=== PATIENT | male | born 1995 | race Caucasian/White ===

== ENCOUNTER 2017-08-16 22:15 | Emergency (ER) | payer OTHER ==
[2017-08-16] MEDS ORDERED: ONDANSETRON DISINTEGRATING 4 MG TAB PO ONE (22:30)
--- NOTE | 2017-08-16 22:30 | EDPHY ---
H & P Stated Complaint: cough, N/v sore throat HPI/ROS: HPI CHIEF COMPLAINT: Dry cough, sore throat, nausea, vomiting, diarrhea "I feel like I have the flu " HISTORY OF PRESENT ILLNESS: This patient otherwise healthy 22-year-old male, presents emergency room with a constellation of complaints. Patient reports to me that he has had sore throat for 2-3 days. Intermittent nausea vomiting and diarrhea. He states he thinks he may have the flu. Did not get his flu shot today. He reports no muscle aches joint pain denies high fever. Denies chest pain or shortness of breath. Denies productive cough. Dry cough present. Main complaint is nausea pain Past Medical History: Denies significant medical history Past Surgical History: Denies significant surgical history Social History: Denies daily use drugs alcohol tobacco products. [employer] student. Family History: Noncontributory. ROS REVIEW OF SYSTEMS: A comprehensive 10 point review of systems is otherwise negative aside from elements mentioned in the history of present illness. Exam Constitutional appears well nontoxic, triage nursing summary reviewed, vital signs reviewed, awake/alert. Eyes normal conjunctivae and sclera, EOMI, PERRLA. HENT posterior pharynx mildly erythematous, no significant exudate or significant swelling, bilateral TMs are erythematous and bulging bilaterally, moist mucus membranes, no epistaxis, neck supple/ no meningismus, no raccoon eyes. Respiratory clear to auscultation bilaterally, normal breath sounds, no respiratory distress, no wheezing. Cardiovascular rate normal, regular rhythm, no murmur, no edema, distal pulses normal. Gastrointestinal soft, non-tender, no rebound, no guarding, normal bowel sounds, no distension, no pulsatile mass. Genitourinary no CVA tenderness. Musculoskeletal no midline vertebral tenderness, full range of motion, no calf swelling, no tenderness of extremities, no meningismus, good pulses, neurovascularly intact. Skin pink, warm, & dry, no rash, skin atraumatic. Neurologic no stick neck, no meningeal signs, supple, awake, alert and oriented x 3, AAOx3, moves all 4 extremities equally, motor intact, sensory intact, CN II-XII intact, normal cerebellar, normal vision, normal speech. Psychiatric normal mood/affect. Heme/Lymph/Immune no lymphadenopathy. Differential Diagnosis: Includes but is not to in a particular order, rule syndrome, upper respiratory tract infection, strep pharyngitis, influenza Medical Decision Making: Plan for this patient rapid strep test. Zofran p. o. for nausea, influenza test. Re-evaluate. Re-evaluation: 1215: Stress test and flu is negative. Will prescribe ibuprofen for pain control at home. Zofran for nausea. He understands stay well-hydrated. Return precautions have been given. Understands return emergency room if develops worsening symptoms includes high fever, vomiting or does not feel well. Rest. Return if worse. He understands. Clinically I believe he has viral syndrome versus influenza. Source: Patient - Personal History Current Tetanus Diphtheria and Acellular Pertussis (TDAP): Yes - Medical/Surgical History Hx Asthma: No Hx Chronic Respiratory Disease: No Hx Diabetes: No Hx Cardiac Disease: No Hx Renal Disease: No Hx Cirrhosis: No Hx Alcoholism: No Hx HIV/AIDS: No Hx Splenectomy or Spleen Trauma: No Other PMH: denies - Social History Smoking Status: Never smoked Constitutional: Initial Vital Signs Temperature (C) 36.4 C 08/16/17 22:18 Heart Rate 82 08/16/17 22:18 Respiratory Rate 20 08/16/17 22:18 Blood Pressure 110/58 L 08/16/17 22:18 O2 Sat (%) 98 08/16/17 22:18 O2 Delivery Mode Room Air Allergies/Adverse Reactions: No Known Allergies Allergy (Unverified 08/16/17 22:17) Home Medications: Medication Instructions Recorded Ibuprofen [Motrin (*)] 800 mg PO Q6-8PRN #10 tab 08/16/17 Ondansetron HCl [Zofran] 4 mg PO Q4-6PRN PRN #10 tablet 08/16/17 Prozac 10 MG (*) 08/16/17 Medical Decision Making - Data Points Laboratory Results: 08/16/17 08/16/17 08/16/17 Unknown 22:35 22:35 Nasal Influenza A PCR NEGATIVE FOR FLU A (NEGATIVE) Nasal Influenza B PCR NEGATIVE FOR FLU B (NEGATIVE) Group A Strep Screen NEGATIVE (NEGATIVE) Group A Strep DNA Pending Medications Given: Discontinued Medications Ondansetron HCl (Zofran Odt) 4 mg PO EDNOW ONE Stop: 08/16/17 22:31 Last Admin: 08/16/17 22:32 Dose: 4 mg Promethazine HCl (Phenergan) 12.5 mg PO EDNOW ONE Stop: 08/16/17 23:24 Last Admin: 08/16/17 23:25 Dose: 12.5 mg Departure - Departure Disposition: Home, Routine, Self-Care Clinical Impression: Viral syndrome Condition: Good Instructions: Viral Syndrome (ED) Additional Instructions: 1. Make sure to drink lots of fluids stay well-hydrated. 2. Tylenol Motrin for fever and pain control. 3. Return emergency develops worsening symptoms questions or concerns. Referrals: NONE *PRIMARY CARE P,. [Primary Care Provider] - As per Instructions Prescriptions: Ibuprofen [Motrin (*)] 800 mg PO Q6-8PRN #10 tab Ondansetron HCl [Zofran] 4 mg PO Q4-6PRN PRN #10 tablet PRN Reason: Nausea/Vomiting, Use 1st
[2017-08-16] MEDS ORDERED: PROMETHAZINE HCL 25 MG TAB PO ONE (23:23)
[2017-08-17 00:05] VITALS: BP 117/58; PULSE 71; RESP 16; TEMP 98.1; O2SAT 94
== END 2017-08-17 00:25 | disposition home or self-care (01) ==
DX: B34.9 Viral infection, unspecified (principal)

== ENCOUNTER 2018-02-11 19:36 | Emergency (ER) | payer OTHER ==
--- NOTE | 2018-02-11 20:01 | EDPHY ---
H & P Time Seen by Provider: 02/11/18 19:53 HPI/ROS: Chief complaint. Abdominal pain HPI. Patient is 22-year-old male right lower quadrant pain for the last 2-3 hours. He had vomiting and diarrhea over the weekend which was 2-3 days ago but that has resolved. He notes decreased urination today. It hurts to urinate. No fever. No history of abdominal surgery. Penis and testicles are normal. Pain is not worse with ambulation or position. He tells me it just hurts constantly. No similar symptoms previously. ROS Constitutional. no fever/chills, no weakness Eyes. no problems with vision ENT. no sore throat, no nasal drainage Cardiovascular. no chest pain Respiratory. no shortness of breath, no cough Abdominal. Right lower quadrant abdominal pain . Decreased urination MS. no calf pain/swelling, no neck/back pain, no joint pain Skin. no rash Lymph. no swollen glands Neuro. no headache, no dizziness, no difficulty walking or with speech Past Medical/Surgical History: Depression Social History: Single, nonsmoker, no alcohol Smoking Status: Never smoked Physical Exam: General Appearance: Alert well-developed male moderate distress vital signs are stable Eyes: Pupils equal and round no pallor or injection. ENT, Mouth: Mucous membranes are moist. Respiratory: There are no retractions, lungs are clear to auscultation. Cardiovascular: Regular rate and rhythm. Gastrointestinal: Abdomen is soft with tenderness at the right lower quadrant at McBurney's point. No masses. Normal bowel sounds. Neurological: Awake and alert, sensory and motor exams grossly normal. Skin: Warm and dry, no rashes. Musculoskeletal: Neck is supple nontender. Extremities symmetrical, full range of motion. Psychiatric: Patient is oriented X 3, there is no agitation. Constitutional: Initial Vital Signs Temperature (C) 36.4 C 02/11/18 19:39 Heart Rate 70 02/11/18 19:39 Respiratory Rate 16 02/11/18 19:39 Blood Pressure 121/75 H 02/11/18 19:39 O2 Sat (%) 97 02/11/18 19:39 O2 Delivery Mode Room Air Allergies/Adverse Reactions: No Known Allergies Allergy (Unverified 02/11/18 19:49) Home Medications: Medication Instructions Recorded Cephalexin [Keflex (*)] 500 mg PO TID #21 cap 02/11/18 Prozac 10 MG (*) 02/11/18 Wellbutrin 100mg (*) 02/11/18 oxyCODONE/APAP 5/325 [Percocet 1 tab PO Q4-6PRN PRN #7 tab 02/11/18 5/325] Medical Decision Making - Diagnostics Imaging Results: Imaging Impressions Abdomen CT 02/11/18 20:05 Impression: 1. Mild right-sided hydronephrosis with dilatation of the right ureter down to the UVJ where there is a 1.5 mm calculus. There is slight decrease in enhancement of the right kidney when compared to the left. 2. No CT evidence of appendicitis, abscess or bowel obstruction. Findings discussed with Eleno Salazar M.D. at 20:53 hour, 02/11/2018. CT abdomen pelvis reviewed by me and discussed with Dr. Simmons shows mild right hydronephrosis and 1.5 mm calculus at the right UVJ Procedures: IV normal saline. Morphine for pain. Zofran for nausea Continues to have pain. Toradol IV Cephalexin in the emergency department ED Course/Re-evaluation: After the Toradol his discomfort is much improved. Re-evaluation 8:50 p.m.. Patient and I discussed imaging and lab results. We discussed treatment plan including criteria for return importance of follow-up and further evaluation. He expresses understanding and agreement Recheck again at 9:45 p.m.. Patient is pain-free. Differential Diagnosis: I considered appendicitis, kidney stone, pyelonephritis - Data Points Laboratory Results: Laboratory Results 02/11/18 19:55 02/11/18 19:55 02/11/18 02/11/18 02/11/18 20:05 19:55 19:55 WBC 10.10 10^3/uL H 10^3/uL (3.80-9.50) RBC 4.84 10^6/uL 10^6/uL (4.40-6.38) Hgb 16.0 g/dL g/dL (13.7-17.5) Hct 45.1 % % (40.0-51.0) MCV 93.2 fL fL (81.5-99.8) MCH 33.1 pg pg (27.9-34.1) MCHC 35.5 g/dL g/dL (32.4-36.7) RDW 12.1 % % (11.5-15.2) Plt Count 255 10^3/uL 10^3/uL (150-400) MPV 9.2 fL fL (8.7-11.7) Neut % (Auto) 38.4 % L % (39.3-74.2) Lymph % (Auto) 50.5 % H % (15.0-45.0) [place] % (Auto) 9.6 % % (4.5-13.0) Eos % (Auto) 0.7 % % (0.6-7.6) Baso % (Auto) 0.5 % % (0.3-1.7) Nucleat RBC Rel Count 0.0 % % (0.0-0.2) Absolute Neuts (auto) 3.88 10^3/uL 10^3/uL (1.70-6.50) Absolute Lymphs (auto) 5.10 10^3/uL H 10^3/uL (1.00-3.00) Absolute Monos (auto) 0.97 10^3/uL H 10^3/uL (0.30-0.80) Absolute Eos (auto) 0.07 10^3/uL 10^3/uL (0.03-0.40) Absolute Basos (auto) 0.05 10^3/uL 10^3/uL (0.02-0.10) Absolute Nucleated RBC 0.00 10^3/uL 10^3/uL (0-0.01) Immature Gran % 0.3 % % (0.0-1.1) Immature Gran # 0.03 10^3/uL 10^3/uL (0.00-0.10) Sodium 141 mEq/L mEq/L (135-145) Potassium 3.3 mEq/L L mEq/L (3.5-5.2) Chloride 103 mEq/L mEq/L (97-110) Carbon Dioxide 23 mEq/l mEq/l (22-31) Anion Gap 15 mEq/L mEq/L (8-16) BUN 15 mg/dL mg/dL (7-23) Creatinine 1.4 mg/dL H mg/dL (0.7-1.3) Estimated GFR > 60 Glucose 125 mg/dL H mg/dL (70-100) Calcium 9.5 mg/dL mg/dL (8.5-10.4) Urine Color YELLOW Urine Appearance HAZY Urine pH 5.0 (5.0-7.5) Ur Specific [place] 1.025 (1.002-1.030) Urine Protein 1+ H (NEGATIVE) Urine Ketones TRACE H (NEGATIVE) Urine Blood 3+ H (NEGATIVE) Urine Nitrate NEGATIVE (NEGATIVE) Urine Bilirubin NEGATIVE (NEGATIVE) Urine Urobilinogen NEGATIVE EU EU (0.2-1.0) Ur Leukocyte Esterase NEGATIVE (NEGATIVE) Urine RBC 50-182 /hpf H /hpf (0-3) Urine WBC 15-25 /hpf H /hpf (0-3) Ur Epithelial Cells TRACE /lpf /lpf (NONE-1+) Urine Mucus 3+ /lpf H /lpf (NONE-1+) Urine Glucose NEGATIVE (NEGATIVE) Medications Given: Discontinued Medications Cephalexin HCl (Keflex) 500 mg PO EDNOW ONE PRN Reason: Protocol Stop: 02/11/18 21:01 Last Admin: 02/11/18 21:15 Dose: 500 mg Sodium Chloride (Ns) 1,000 mls @ 0 mls/hr IV EDNOW ONE; Wide Open PRN Reason: Protocol Stop: 02/11/18 20:06 Last Admin: 02/11/18 20:23 Dose: 1,000 mls Sodium Chloride (Ns) 1,000 mls @ 0 mls/hr IV EDNOW ONE; Wide Open PRN Reason: Protocol Stop: 02/11/18 20:06 Last Admin: 02/11/18 21:16 Dose: 1,000 mls Ketorolac Tromethamine (Toradol) 15 mg IVP EDNOW ONE Stop: 02/11/18 20:42 Last Admin: 02/11/18 20:44 Dose: 15 mg Morphine Sulfate (Morphine) 6 mg IVP EDNOW ONE Stop: 02/11/18 20:06 Last Admin: 02/11/18 20:23 Dose: 4 mg Ondansetron HCl (Zofran) 4 mg IVP EDNOW ONE Stop: 02/11/18 20:06 Last Admin: 02/11/18 20:23 Dose: 4 mg Oxycodone/Acetaminophen (Percocet 5/325mg Prepack#4) 1 btl TAKEHOME EDNOW ONE Stop: 02/11/18 21:01 Last Admin: 02/11/18 21:15 Dose: 1 btl Departure - Departure Disposition: Home, Routine, Self-Care Clinical Impression: Renal colic on right side Condition: Good Instructions: Oxycodone/Acetaminophen (By mouth), Kidney Stones (ED), How to Strain Your Urine (ED) Additional Instructions: Drink plenty of fluids and stay hydrated. Ibuprofen 600 mg every 6 hr for discomfort. Oxycodone in addition if necessary for discomfort using 1 pill every 4-6 hours. Cephalexin as antibiotic. Strain your urine next 24 hr and stave the kidney stone for analysis. Return for worsening symptoms. Follow up with Urology for further evaluation Referrals: NONE *PRIMARY CARE P,. [Primary Care Provider] - As per Instructions Russell Cooper MD [Medical Doctor] - 2-3 days, call for appt. Prescriptions: Cephalexin [Keflex (*)] 500 mg PO TID #21 cap oxyCODONE/APAP 5/325 [Percocet 5/325] 1 tab PO Q4-6PRN PRN #7 tab PRN Reason: Pain, Moderate
[2018-02-11] MEDS ORDERED: NS 1,000 ML IV ONE ×2 (20:05)
[2018-02-11] MEDS ORDERED: ONDANSETRON 4 MG/2 ML VIAL IVP ONE (20:05)
[2018-02-11 20:07] LABS: PLATELET COUNT 255 10^3/uL (150-400)
[2018-02-11] MEDS ORDERED: IOPAMIDOL (ISOVUE-300) 100 ML BTL ONE (20:09)
[2018-02-11] MEDS ORDERED: KETOROLAC 15 MG/1 ML SDV IVP ONE (20:41)
[2018-02-11] MEDS ORDERED: OXYCODONE/APAP 5/325MG PREPACK#4 BTL TAKEHOME ONE (21:00)
[2018-02-11] MEDS ORDERED: CEPHALEXIN 500 MG CAP PO ONE (21:00)
[2018-02-11 21:59] VITALS: BP 121/70
== END 2018-02-11 21:57 | disposition home or self-care (01) ==
DX: N23 Unspecified renal colic (principal); E86.9 Volume depletion, unspecified
CPT/HCPCS: 96374; J1885; J2270; J2405; Q9967